=== PATIENT | female | born 1945 | race Caucasian/White ===

== ENCOUNTER 2016-08-22 20:44 | Observation (INO) | payer OTHER ==
[~2016-08-22] VITALS: Ht 162.6 cm; Wt 84.0 kg
[~2016-08-22 20:44] MED LIST: ACID REDUCER150 MG PO; ADALAT CC 30 MG30 MG PO; AMLODIPINE BESY10 MG PO; COREG12.5 M1 PO; Coreg PO; GABAPENTIN300 MG PO; GLIPIZIDE10 MG PO; GLUCOPHAGE1000 MG PO; LANTUS 10100 UNITS/ SC; LANTUS 3 M100 UNITS1 SC; LASIX20 MG PO; LEVAQUIN500 MG PO; LO-DOSE ASPIRIN81 M2 PO; LOSARTAN POTAS100 MG PO; MEDROL DOSEPAK4 MG PO; NOVOLOG 10100 UNITS/ SC; NOVOLOG PE100 UNITS/ SC; Norvasc PO; OXYBUTYNIN CHLOR5 MG PO; PRAVACHOL20 MG PO; PROAIR HFA8.5 GM IH; ROBITUSSIN AC,T10 ML PO; TESSALON PERLE100 MG PO
[2016-08-22 22:49] LABS: HEMATOCRIT 43.3 % (36.0-46.0); MCH 26.6 PG (29.0-34.0); MCHC 32.3 G/DL (30.0-36.0); MCV 82.3 FL (83-99); MEAN PLAT.VOLUME 10.8 uM^3 (9.5-12.4); PLATELET COUNT 260 K/uL (156-360); RBC DIS.WIDTH-CV 14.6 % (11.8-14.6); RBC DIS.WIDTH-SD 43.8 % (39-53); RED BLOOD COUNT 5.26 M/uL (3.80-5.20); WHITE BLOOD COUNT 7.3 K/uL (4.1-10.2)
[2016-08-22 22:57] LABS: CHLORIDE 104 mEq/L (99-109); POTASSIUM 4.1 mEq/L (3.7-5.4); SODIUM 136 mEq/L (136-147)
[2016-08-22 22:59] LABS: GLUCOSE 149 mg/dL (70-99)
[2016-08-22 23:00] LABS: ANION GAP 12 MEQ/L (2-14)
[2016-08-22 23:03] LABS: GFR ESTIMATE (CALCULATED) 52 mL/min/
[2016-08-22 23:04] LABS: UREA NITROGEN (BUN) 19 mg/dL (9-23)
[2016-08-23 02:22] LABS: ADD MIUA? YES; BILIRUBIN NEGATIVE; BLOOD NEGATIVE; COLOR AMBER ((YELLOW)); GLUCOSE (STRIP) NEGATIVE; KETONES NEGATIVE; LEUKOCYTES MODERATE; NITRITE NEGATIVE; PROTEIN (STRIP) >=500; SPECIFIC GRAVITY 1.013 (1.000-1.030); UROBILINOGEN 0.2 MG/DL (0.2-1.0)
[2016-08-23 02:33] LABS: BACTERIA RARE /HPF; EPITHELIAL CELLS 2+ /HPF; HYALINE CASTS 0-5 /LPF; MUCUS TRACE /LPF; UCUL ADDED? YES; WHITE BLOOD CELLS TNTC /HPF (0-5); WHITE BLOOD CELLS CLUMP FEW /HPF (0-5)
[2016-08-23] MEDS ORDERED: RANITIDINE HCL150 MG PO (03:06)
[2016-08-23 07:38] LABS: POINT-OF-CARE METER ID UU14100415
[2016-08-23 07:45] LABS: HDL CHOLESTEROL 44 MG/DL (Desirable>=50); LDL CHOLESTEROL 108 mg/dL (Desirable<100); NON-HDL CHOLESTEROL 140 mg/dL (Desirable<160); TOTAL CHOLESTEROL 184 mg/dL (Desirable<200); TRIGLYCERIDES 162 MG/DL (Normal: <150)
[2016-08-23 08:16] LABS: Estimated Average Glucose 217 mg/dL (70-123); HEMOGLOBIN A1c (GLYCOHEMOGLOB) 9.2 % HGB (Below 5.7)
[2016-08-23 08:43] VITALS: BP 167/79
[2016-08-23 12:15] VITALS: BP 154/78
[2016-08-23 12:32] LABS: POINT-OF-CARE METER ID UU14162513
[2016-08-23] MEDS ORDERED: PRAVACHOL20 MG PO (14:43)
[2016-08-23] MEDS ORDERED: CEFTIN250 MG PO (14:43)
[2016-08-23] MEDS ORDERED: GLUCOPHAGE1000 MG PO (14:43)
[2016-08-23 16:16] VITALS: BP 145/78
[2016-08-23 20:01] VITALS: BP 126/72
[2016-08-24 00:49] VITALS: BP 132/68
[2016-08-24 04:40] VITALS: BP 136/62
[2016-08-24 07:18] LABS: HEMATOCRIT 36.2 % (36.0-46.0); MCH 27.2 PG (29.0-34.0); MCV 84.8 FL (83-99); MEAN PLAT.VOLUME 11.5 uM^3 (9.5-12.4); PLATELET COUNT 229 K/uL (156-360); RBC DIS.WIDTH-CV 14.8 % (11.8-14.6); RBC DIS.WIDTH-SD 45.4 % (39-53); RED BLOOD COUNT 4.27 M/uL (3.80-5.20)
[2016-08-24 07:21] LABS: WHITE BLOOD COUNT 5.1 K/uL (4.1-10.2)
[2016-08-24 09:03] VITALS: BP 161/80
[2016-08-24 13:17] LABS: POINT-OF-CARE METER ID UU13113700
== END 2016-08-24 16:29 | disposition home or self-care (01) ==
LOC: EME 20:44 → EDOF 08-23 06:21 → 5WEST 08-23 06:21 → EDOF 08-23 06:21 → 5WEST 08-23 08:37
PROVIDERS: Emergency Medicine; Hospitalist; Internal Medicine; Student in an Organized Health Care Education/Training Program
DX: R41.82 Altered mental status, unspecified (principal); N39.0 Urinary tract infection, site not specified; R10.9 Unspecified abdominal pain; I10 Essential (primary) hypertension; F32.9 Major depressive disorder, single episode, unspecified; E11.9 Type 2 diabetes mellitus without complications; Z91.81 History of falling; Z87.820 Personal history of traumatic brain injury; Z79.84 Long term (current) use of oral hypoglycemic drugs; Z79.82 Long term (current) use of aspirin
CPT/HCPCS: 70450; 70551; 71020; 74177; 80048; 80061; 81003; 82948; 83036; 85027; 87077; 87086; 87186; 87493; 93005; 99281; 99285; G0378; G8978 GP CJ; G8980 GP CI; J0696; J1650; J1815; J7030; J7050

== ENCOUNTER 2016-11-16 14:14 | Inpatient (IN) | payer OTHER ==
[~2016-11-16] VITALS: Ht 162.6 cm; Wt 86.0 kg
[~2016-11-16 14:14] MED LIST changes: +CEFTIN250 MG PO; +RANITIDINE HCL150 MG PO
[2016-11-16 14:53] LABS: POINT-OF-CARE METER ID UU14100415
[2016-11-16 15:08] LABS: EOSINOPHIL (%) 2.2 % (0-5); EOSINOPHIL COUNT 0.2 K/uL (0-0.3); HEMATOCRIT 40.4 % (36.0-46.0); IMMATURE GRANULOCYTE (%) 0.8 % (0.0-0.7); IMMATURE GRANULOCYTE COUNT 0.1 K/uL; INSTRUMENT ABS NEUTROPHIL CT 6.9 K/uL; LYMPHOCYTE COUNT 1.1 K/uL (1.0-2.8); MCH 26.3 PG (29.0-34.0); MCHC 30.7 G/DL (30.0-36.0); MCV 85.8 FL (83-99); MEAN PLAT.VOLUME 11.7 uM^3 (9.5-12.4); MONOCYTE (%) 4.5 % (3-12); MONOCYTE COUNT 0.4 K/uL (0-0.8); NEUTROPHIL (%) 79.8 % (45-76); NEUTROPHIL COUNT 6.9 K/uL (1.8-6.4); PLATELET COUNT 243 K/uL (156-360); RBC DIS.WIDTH-CV 14.6 % (11.8-14.6); RBC DIS.WIDTH-SD 45.7 % (39-53); RED BLOOD COUNT 4.71 M/uL (3.80-5.20); WHITE BLOOD COUNT 8.7 K/uL (4.1-10.2)
[2016-11-16 15:24] LABS: ANION GAP 11 MEQ/L (2-14); CHLORIDE 104 MEQ/L (99-109); POTASSIUM 3.1 MEQ/L (3.7-5.4); SAMPLE HEMOLYSIS CHECK 0; SAMPLE ICTERIC CHECK 0; SAMPLE LIPEMIA CHECK 0; SODIUM 139 MEQ/L (136-147); TOTAL BILIRUBIN 0.4 MG/DL (0.0-1.0)
[2016-11-16 15:29] LABS: TROP-I INTERPRETATION NEGATIVE; TROPONIN-I 0.01 ng/mL (0.0-0.30)
[2016-11-16 15:30] LABS: ALKALINE PHOSPHATASE 119 IU/L (3-129); GFR ESTIMATE (CALCULATED) 32 mL/min/; GLUCOSE 145 mg/dL (70-99); UREA NITROGEN (BUN) 26 mg/dL (9-23)
[2016-11-16 15:36] LABS: POINT-OF-CARE METER ID UU14100415
[2016-11-16] MEDS ORDERED: PRAVASTATIN SOD20 MG PO (16:30)
[2016-11-16] MEDS ORDERED: NEURONTIN600 MG PO (16:31)
[2016-11-16] MEDS ORDERED: GLUCOPHAGE1000 MG PO (16:31)
[2016-11-16] MEDS ORDERED: HYDROCHLOROTH12.5 M3 PO (16:31)
[2016-11-16 16:33] LABS: ADD MIUA? YES; BILIRUBIN NEGATIVE; BLOOD NEGATIVE; COLOR AMBER ((YELLOW)); GLUCOSE (STRIP) NEGATIVE; KETONES NEGATIVE; LEUKOCYTES LARGE; NITRITE NEGATIVE; PROTEIN (STRIP) >=500; SPECIFIC GRAVITY 1.013 (1.000-1.030); UROBILINOGEN 0.2 MG/DL (0.2-1.0)
[2016-11-16 16:47] LABS: RED BLOOD CELLS 0-5 /HPF (0-5); WHITE BLOOD CELLS TNTC /HPF (0-5)
[2016-11-16 16:48] LABS: BACTERIA 2+ /HPF; EPITHELIAL CELLS 2+ /HPF; MUCUS NONE SEEN /LPF; UCUL ADDED? YES
[2016-11-16 17:10] LABS: MAGNESIUM 1.5 mg/dl (1.3-2.7)
[2016-11-16 17:11] LABS: POINT-OF-CARE METER ID UU14100415
[2016-11-16 18:54] LABS: POINT-OF-CARE METER ID UU14100415
[2016-11-16 19:53] LABS: POINT-OF-CARE METER ID UU14100415
[2016-11-16 20:50] VITALS: BP 111/68
[2016-11-16 21:14] VITALS: BP 111/68
[2016-11-17] VITALS: BP 106/55
[2016-11-17 04:00] VITALS: BP 135/65
[2016-11-17 06:50] LABS: ANION GAP 11 MEQ/L (2-14); CHLORIDE 108 MEQ/L (99-109); GFR ESTIMATE (CALCULATED) 43 mL/min/; GLUCOSE 145 mg/dL (70-99); POTASSIUM 4.3 MEQ/L (3.7-5.4); SAMPLE HEMOLYSIS CHECK 0; SAMPLE ICTERIC CHECK 0; SAMPLE LIPEMIA CHECK 0; SODIUM 137 MEQ/L (136-147); UREA NITROGEN (BUN) 28 mg/dL (9-23)
[2016-11-17 08:15] VITALS: BP 136/66
[2016-11-17 08:45] LABS: POINT-OF-CARE METER ID UU13113781; POINT-OF-CARE USER ID ENVKC36
[2016-11-17 11:25] LABS: POINT-OF-CARE USER ID NUTSLF44
[2016-11-17 12:15] VITALS: BP 135/65
[2016-11-17 13:00] LABS: POINT-OF-CARE METER ID UU13113781; POINT-OF-CARE USER ID NUTSLF44
[2016-11-17 14:54] LABS: POINT-OF-CARE METER ID UU14100415
[2016-11-17 15:30] VITALS: BP 169/81
[2016-11-17 16:31] LABS: POINT-OF-CARE METER ID UU13113781; POINT-OF-CARE USER ID NUTSLF44
[2016-11-17 18:56] VITALS: BP 158/80
[2016-11-17 21:05] LABS: POINT-OF-CARE METER ID UU13113781
[2016-11-18] VITALS (7 sets, daily range): BP systolic 132–188; BP diastolic 78–98
[2016-11-18 06:50] LABS: HEMATOCRIT 37.8 % (36.0-46.0); MCH 26.7 PG (29.0-34.0); MCHC 31.2 G/DL (30.0-36.0); MCV 85.5 FL (83-99); MEAN PLAT.VOLUME 11.6 uM^3 (9.5-12.4); PLATELET COUNT 212 K/uL (156-360); RBC DIS.WIDTH-CV 14.6 % (11.8-14.6); RBC DIS.WIDTH-SD 46.2 % (39-53); RED BLOOD COUNT 4.42 M/uL (3.80-5.20)
[2016-11-18 07:11] LABS: ANION GAP 9 MEQ/L (2-14); CHLORIDE 105 MEQ/L (99-109); GFR ESTIMATE (CALCULATED) 59 mL/min/; GLUCOSE 134 mg/dL (70-99); POTASSIUM 4.6 MEQ/L (3.7-5.4); SAMPLE HEMOLYSIS CHECK 0; SAMPLE ICTERIC CHECK 0; SAMPLE LIPEMIA CHECK 0; SODIUM 139 MEQ/L (136-147); UREA NITROGEN (BUN) 19 mg/dL (9-23)
[2016-11-18 07:56] LABS: POINT-OF-CARE METER ID UU13113781
[2016-11-18 16:31] LABS: POINT-OF-CARE METER ID UU13113781
[2016-11-18 17:03] LABS: POINT-OF-CARE METER ID UU14174216
[2016-11-18 21:34] LABS: POINT-OF-CARE METER ID UU14174216
[2016-11-19 05:25] VITALS: BP 178/82
[2016-11-19 08:10] LABS: POINT-OF-CARE METER ID UU13113781; POINT-OF-CARE USER ID ENVKC36
[2016-11-19 08:12] VITALS: BP 182/86
[2016-11-19] MEDS ORDERED: CEFTIN500 MG PO (08:24)
[2016-11-19 11:23] VITALS: BP 110/64
[2016-11-19 11:32] LABS: POINT-OF-CARE METER ID UU13113781; POINT-OF-CARE USER ID ENVKC36
== END 2016-11-19 14:12 | DRG 637 ==
LOC: EME 14:14 → 4EAST 16:28 → EDOF 16:28 → 4EAST 20:33
PROVIDERS: Emergency Medicine; Hospitalist; Internal Medicine; Physician Assistant
DX: E11.649 Type 2 diabetes mellitus with hypoglycemia without coma (principal); G93.41 Metabolic encephalopathy; N17.9 Acute kidney failure, unspecified; N39.0 Urinary tract infection, site not specified; E87.6 Hypokalemia; E86.0 Dehydration; I10 Essential (primary) hypertension; E78.5 Hyperlipidemia, unspecified; I95.9 Hypotension, unspecified; F03.90 Unspecified dementia, unspecified severity, without behavioral disturbance, psychotic disturbance, mood disturbance, and anxiety; J98.11 Atelectasis; K21.9 Gastro-esophageal reflux disease without esophagitis; F32.9 Major depressive disorder, single episode, unspecified; Z79.4 Long term (current) use of insulin; Z86.73 Personal history of transient ischemic attack (TIA), and cerebral infarction without residual deficits; Z79.82 Long term (current) use of aspirin; Z91.81 History of falling; Z90.710 Acquired absence of both cervix and uterus
CPT/HCPCS: 70450; 71020; 80048; 80053; 81003; 82948; 83735; 84145 90; 84484; 85025; 85027; 87040; 87077; 87086; 87186; 93005; 94799; 97530 GP; 99281; 99285; J0696; J1644; J1815; J3480; J7030; J7050

== ENCOUNTER 2017-01-15 21:18 | Emergency (ER) | payer OTHER ==
[~2017-01-15] VITALS: Ht 160 cm; Wt 90.0 kg
[~2017-01-15 21:18] MED LIST changes: +CEFTIN500 MG PO; +HYDROCHLOROTH12.5 M3 PO; +NEURONTIN600 MG PO; +PRAVASTATIN SOD20 MG PO
[2017-01-15 21:52] LABS: HEMATOCRIT 36.6 % (36.0-46.0); MCH 26.9 PG (29.0-34.0); MCHC 31.4 G/DL (30.0-36.0); MCV 85.5 FL (83-99); PLATELET COUNT 183 K/uL (156-360); RBC DIS.WIDTH-CV 14.2 % (11.8-14.6); RBC DIS.WIDTH-SD 44.2 % (39-53); RED BLOOD COUNT 4.28 M/uL (3.80-5.20); WHITE BLOOD COUNT 6.5 K/uL (4.1-10.2)
[2017-01-15 22:06] LABS: CHLORIDE 105 mEq/L (99-109); SODIUM 139 mEq/L (136-147)
[2017-01-15 22:08] LABS: GLUCOSE 183 mg/dL (70-99)
[2017-01-15 22:10] LABS: ANION GAP 13 MEQ/L (2-14); TOTAL BILIRUBIN 0.3 mg/dL (0.0-1.0)
[2017-01-15 22:12] LABS: ALKALINE PHOSPHATASE 199 IU/L (3-129); GFR ESTIMATE (CALCULATED) 34 mL/min/
[2017-01-15 22:13] LABS: ADD MIUA? YES; BILIRUBIN NEGATIVE; BLOOD NEGATIVE; COLOR YELLOW ((YELLOW)); GLUCOSE (STRIP) NEGATIVE; KETONES NEGATIVE; LEUKOCYTES NEGATIVE; NITRITE NEGATIVE; PROTEIN (STRIP) 30; SPECIFIC GRAVITY 1.011 (1.000-1.030); UROBILINOGEN 0.2 MG/DL (0.2-1.0)
[2017-01-15 22:13] LABS: UREA NITROGEN (BUN) 37 mg/dL (9-23)
[2017-01-15 22:27] LABS: BACTERIA RARE /HPF; EPITHELIAL CELLS 1+ /HPF; HYALINE CASTS 0-5 /LPF; MUCUS TRACE /LPF; RED BLOOD CELLS 0-5 /HPF (0-5); UCUL ADDED? NO; WHITE BLOOD CELLS 0-5 /HPF (0-5)
[2017-01-16 00:23] VITALS: BP 140/74
== END 2017-01-16 00:25 | disposition home or self-care (01) ==
LOC: EME 21:18
DX: E86.0 Dehydration (principal); E11.65 Type 2 diabetes mellitus with hyperglycemia; Z79.4 Long term (current) use of insulin; Z79.82 Long term (current) use of aspirin; K21.9 Gastro-esophageal reflux disease without esophagitis; I10 Essential (primary) hypertension; F32.9 Major depressive disorder, single episode, unspecified
CPT/HCPCS: 70450; 71010; 74176; 80053; 81003; 85027; 99281; 99285; J7030

== ENCOUNTER 2017-11-13 15:52 | Inpatient (IN) | payer OTHER ==
[~2017-11-13] VITALS: Ht 160 cm; Wt 95.3 kg
[~2017-11-13 15:52] MED LIST changes: +NEURONTIN100 MG PO; -NEURONTIN600 MG PO
[2017-11-13 16:51] LABS: BASOPHIL (%) 0.5 % (0-1); EOSINOPHIL (%) 1.2 % (0-5); EOSINOPHIL COUNT 0.1 K/uL (0-0.3); HEMATOCRIT 39.8 % (36.0-46.0); HEMOGLOBIN 12.8 G/DL (11.9-15.5); IMMATURE GRANULOCYTE (%) 0.4 % (0.0-0.7); LYMPHOCYTE (%) 13.8 % (15-42); LYMPHOCYTE COUNT 1.1 K/uL (1.0-2.8); MCH 27.2 PG (29.0-34.0); MCHC 32.2 G/DL (30.0-36.0); MCV 84.7 FL (83-99); MONOCYTE (%) 4.6 % (3-12); MONOCYTE COUNT 0.4 K/uL (0-0.8); NEUTROPHIL (%) 79.5 % (45-76); NEUTROPHIL COUNT 6.4 K/uL (1.8-6.4); PLATELET COUNT 224 K/uL (156-360); RBC DIS.WIDTH-CV 14.3 % (11.8-14.6); WHITE BLOOD COUNT 8.1 K/uL (4.1-10.2)
[2017-11-13 17:00] LABS: INTER. NORMALIZED RATIO 1.1
[2017-11-13 17:02] LABS: ALBUMIN 3.8 g/dL (3.2-4.8); CHLORIDE 102 mEq/L (99-109); POTASSIUM 4.5 mEq/L (3.7-5.4)
[2017-11-13 17:03] LABS: MAGNESIUM 1.8 mg/dL (1.3-2.7); PTT 32.5 SEC (25-37); SODIUM 140 mEq/L (136-147)
[2017-11-13 17:05] LABS: GLUCOSE 379 mg/dL (70-99); TOTAL PROTEIN 7.5 g/dL (6.4-8.3)
[2017-11-13 17:07] LABS: TOTAL BILIRUBIN 0.3 mg/dL (0.0-1.0)
[2017-11-13 17:08] LABS: ALKALINE PHOSPHATASE 252 IU/L (3-129)
[2017-11-13 17:09] LABS: CREATININE 1.3 mg/dL (0.6-1.3); GFR ESTIMATE (CALCULATED) 43 mL/min/
[2017-11-13 17:10] LABS: AST (GOT) 53 IU/L (2-34); UREA NITROGEN (BUN) 26 mg/dL (9-23)
[2017-11-13 17:11] LABS: TROP-I INTERPRETATION NEGATIVE; TROPONIN-I < 0.01 ng/mL (0.0-0.30)
[2017-11-13 17:12] LABS: ALT (GPT) 56 IU/L (3-49)
[2017-11-13 18:21] LABS: APPEARANCE CLOUDY ((CLEAR)); BILIRUBIN NEGATIVE; BLOOD SMALL; COLOR YELLOW ((YELLOW)); GLUCOSE (STRIP) >=500; KETONES NEGATIVE; LEUKOCYTES MODERATE; NITRITE NEGATIVE; PROTEIN (STRIP) 100; SPECIFIC GRAVITY 1.014 (1.000-1.030); UROBILINOGEN 0.2 MG/DL (0.2-1.0)
[2017-11-13 19:05] LABS: BACTERIA 3+ /HPF; EPITHELIAL CELLS RARE /HPF; MUCUS NONE SEEN /LPF; RED BLOOD CELLS 0-5 /HPF (0-5); UCUL ADDED? YES; WHITE BLOOD CELLS 20-30 /HPF (0-5)
[2017-11-13 20:56] LABS: TROP-I INTERPRETATION NEGATIVE; TROPONIN-I < 0.01 ng/mL (0.0-0.30)
[2017-11-13] MEDS ORDERED: LASIX20 MG PO (22:24)
[2017-11-13] MEDS ORDERED: NOVOLOG PE100 UNITS/ SC (22:27)
[2017-11-13 22:59] VITALS: BP 147/82
[2017-11-14] VITALS (7 sets, daily range): BP systolic 110–167; BP diastolic 57–92
[2017-11-15 03:17] VITALS: BP 133/66
[2017-11-15 05:29] LABS: HEMATOCRIT 34.9 % (36.0-46.0); HEMOGLOBIN 11.3 G/DL (11.9-15.5); MCH 26.9 PG (29.0-34.0); MCHC 32.4 G/DL (30.0-36.0); MCV 83.1 FL (83-99); PLATELET COUNT 202 K/uL (156-360); RBC DIS.WIDTH-CV 14.5 % (11.8-14.6); RBC DIS.WIDTH-SD 43.8 % (39-53); WHITE BLOOD COUNT 14.5 K/uL (4.1-10.2)
[2017-11-15 06:20] LABS: CHLORIDE 97 MEQ/L (99-109); CREATININE 1.6 MG/DL (0.6-1.3); GFR ESTIMATE (CALCULATED) 34 mL/min/; POTASSIUM 4.2 MEQ/L (3.7-5.4)
[2017-11-15 06:30] LABS: GLUCOSE 459 mg/dL (70-99); SODIUM 130 MEQ/L (136-147); UREA NITROGEN (BUN) 42 mg/dL (9-23)
[2017-11-15 09:22] VITALS: BP 146/69
[2017-11-15 12:03] VITALS: BP 137/72
[2017-11-15 15:24] LABS: CHLORIDE 97 MEQ/L (99-109); CREATININE 1.5 MG/DL (0.6-1.3); GFR ESTIMATE (CALCULATED) 37 mL/min/; POTASSIUM 4.7 MEQ/L (3.7-5.4); SODIUM 126 MEQ/L (136-147); UREA NITROGEN (BUN) 50 mg/dL (9-23)
[2017-11-15 15:26] LABS: GLUCOSE 528 mg/dL (70-99)
[2017-11-15 19:07] VITALS: BP 124/64
[2017-11-15 22:19] LABS: ALBUMIN 3.8 G/DL (3.2-4.8); ALKALINE PHOSPHATASE 196 IU/L (3-129); ALT (GPT) 35 IU/L (3-49); AST (GOT) 34 IU/L (2-34); CHLORIDE 96 MEQ/L (99-109); CREATININE 1.6 MG/DL (0.6-1.3); GFR ESTIMATE (CALCULATED) 34 mL/min/; POTASSIUM 4.8 MEQ/L (3.7-5.4); SODIUM 128 MEQ/L (136-147); TOTAL BILIRUBIN 0.3 MG/DL (0.0-1.0); TOTAL PROTEIN 7.4 G/DL (6.4-8.3); UREA NITROGEN (BUN) 52 mg/dL (9-23)
[2017-11-15 22:20] LABS: GLUCOSE 520 mg/dL (70-99)
[2017-11-15 23:54] VITALS: BP 199/95
[2017-11-16 00:06] VITALS: BP 168/94
[2017-11-16 03:13] VITALS: BP 161/77
[2017-11-16 04:50] LABS: HEMOGLOBIN 12.3 G/DL (11.9-15.5); MCH 27.6 PG (29.0-34.0); MCHC 33.2 G/DL (30.0-36.0); PLATELET COUNT 238 K/uL (156-360); RBC DIS.WIDTH-CV 14.6 % (11.8-14.6); RED BLOOD COUNT 4.46 M/uL (3.80-5.20); WHITE BLOOD COUNT 21.1 K/uL (4.1-10.2)
[2017-11-16 04:59] LABS: CHLORIDE 102 mEq/L (99-109); POTASSIUM 4.9 mEq/L (3.7-5.4)
[2017-11-16 05:01] LABS: GLUCOSE 291 mg/dL (70-99)
[2017-11-16 05:05] LABS: CREATININE 1.5 mg/dL (0.6-1.3); GFR ESTIMATE (CALCULATED) 37 mL/min/
[2017-11-16 05:06] LABS: UREA NITROGEN (BUN) 47 mg/dL (9-23)
[2017-11-16 05:17] LABS: SODIUM 135 mEq/L (136-147)
[2017-11-16 07:29] VITALS: BP 150/72
[2017-11-16 11:47] VITALS: BP 150/76
[2017-11-16] MEDS ORDERED: NOVOLOG PE100 UNITS/ SC (12:22)
[2017-11-16] MEDS ORDERED: BENZONATATE100 MG PO (12:22)
[2017-11-16] MEDS ORDERED: PROVENTIL HFA6.7 GM IH (12:22)
[2017-11-16] MEDS ORDERED: DOCUSATE SODIU100 MG PO (12:22)
[2017-11-16] MEDS ORDERED: MUCINEX600 MG PO (12:22)
[2017-11-16] MEDS ORDERED: LANTUS 3 M100 UNITS1 SC (12:22)
[2017-11-16] MEDS ORDERED: CEFTIN250 MG PO (12:22)
[2017-11-16] MEDS ORDERED: ONDANSETRON ODT4 MG PO (12:22)
[2017-11-16] MEDS ORDERED: PREDNISONE10 MG PO (12:37)
[2017-11-16 15:20] VITALS: BP 140/72
== END 2017-11-16 18:32 | disposition home health service (06) | DRG 191 ==
LOC: EME 15:52 → EDOF 20:19 → 4SOUTH 20:19 → EDOF 20:19 → ENRESERV 20:26 → 4SOUTH 22:47
PROVIDERS: Emergency Medicine; Hospitalist; Internal Medicine; Physician Assistant Medical
DX: J44.0 Chronic obstructive pulmonary disease with (acute) lower respiratory infection (principal); N17.9 Acute kidney failure, unspecified; J20.9 Acute bronchitis, unspecified; J44.1 Chronic obstructive pulmonary disease with (acute) exacerbation; I12.9 Hypertensive chronic kidney disease with stage 1 through stage 4 chronic kidney disease, or unspecified chronic kidney disease; N18.3 Chronic kidney disease, stage 3 (moderate); E11.22 Type 2 diabetes mellitus with diabetic chronic kidney disease; N39.0 Urinary tract infection, site not specified; Z86.73 Personal history of transient ischemic attack (TIA), and cerebral infarction without residual deficits; B96.20 Unspecified Escherichia coli [E. coli] as the cause of diseases classified elsewhere; E66.9 Obesity, unspecified; Z68.35 Body mass index [BMI] 35.0-35.9, adult; I44.0 Atrioventricular block, first degree; E11.65 Type 2 diabetes mellitus with hyperglycemia; F01.50 Vascular dementia, unspecified severity, without behavioral disturbance, psychotic disturbance, mood disturbance, and anxiety; E78.5 Hyperlipidemia, unspecified; R09.02 Hypoxemia; Z98.42 Cataract extraction status, left eye; J98.11 Atelectasis; Z79.4 Long term (current) use of insulin; R32 Unspecified urinary incontinence; Z79.82 Long term (current) use of aspirin; Z82.3 Family history of stroke
CPT/HCPCS: 71045; 71250; 80048; 80048 91; 80053; 81003; 82010; 82803; 82948; 83605; 83735; 83880; 84484; 85025; 85027; 85610; 85730; 87040; 87077; 87086; 87186; 93005; 94640; 94640 76; 94799; 99202; 99281; 99285; G0378; J0696; J1650; J1815; J1940; J1956; J2405; J2920; J2930; J3480; J7120